=== PATIENT | female | born 1985 | race Caucasian/White ===

== ENCOUNTER 2019-10-08 13:14 | Inpatient (IN) | payer BC ==
[2019-10-08] MEDS ORDERED: Lactated Ringers 1000 ML Bag* 1,000 ML IV ONE (13:19)
[2019-10-08] MEDS ORDERED: Buffered Lidocaine 1% SYRIN* 1 ML/SYRINGE INTRADERM ONE (13:19)
[2019-10-08] MEDS ORDERED: Promethazine INJ(RESTRICTED)* 25 MG/ML 1 ML VIAL IV ONE (13:31)
[2019-10-08] MEDS ORDERED: Dinoprostone* 10 MG VAG.SUPP VAGINAL ONE (13:31)
[2019-10-08] MEDS ORDERED: Nalbuphine* 10 MG/ML 1 ML VIAL IV ONE (13:31)
[2019-10-08] MEDS ORDERED: Lactated Ringers 1000 ML Bag* 1,000 ML IV SCH (14:00)
--- NOTE | 2019-10-08 14:26 | HP ---
General Information - Reason for Visit IOL secondary to CHTN at term - General Information Maternal Age: 34 Grav: 1 Estimated Due Date: 10/09/19 Determined By: LMP Gestational Age in Weeks/Days: 39w6d Maternal Blood Type and Rh: AB Positive - Results this Serology/RPR Result: Non-Reactive Rubella Result: Immune HBsAg Result: Negative HIV Result: Negative GBS Culture Result: Negative Past Medical History Pertinent Past Medical History: See Records - Chronic Hypertension Pertinent Past Surgical History: See Records Past Surgical History Comment: S/P Appendectomy S/P Left Ovarian Cystectomy, partial oophorectomy in 2004 Pertinent Family History: Non-Contributory - Antepartal Records Antepartal Records: Reviewed, Complicated by: - Chronic Hypertension Review of Systems Constitutional: Comfortable CV Complaint: No Respiratory: Shortness of Breath: No Gastrointestinal: No Nausea/Vomiting, Normal Bowel Movement Genitourinary: No Dysuria, No Bleeding, No Leaking Fluid Musculoskeletal: No Complaint, No Epigastric Pain Neurological: No Headache, No Visual Changes Movement: Normal Exam Allergies/Adverse Reactions: Allergies MS Penicillins [PCN] Allergy (Verified 07/24/14 17:12) Hives BP 132/92 Pulse 111 RR20 T 98.8 O2% 100 - Exam Breast: Breast Exam Deferred CVA: No CVA Tenderness Extremities: No Edema Heart: Normal Rhythm/Heart Sounds HEENT: No Significant Findings Lungs: Clear Bilaterally Rectal: Rectal Exam Deferred Reflexes: DTR 2+ Thyroid: No Thyromegaly - Abdominal Exam Abdomen Exam: Non-Tender, Fundal Height Consistent with Dates - Ultrasound/Biophysical Profile Ultrasound Status: Bedside Exam - Vertex Targeted Exam Findings Cervical Exam: 1cm Effacement: 60% Station: -3 Presenting Part: Vertex Membrane Status: Intact Bleeding/Discharge: None EFM Findings - External Monitor Findings Baseline Heart Rate: 130 External Monitor Findings: Accelerations Present, No Pattern of Variable or Late Decelerations, Variability Moderate, Baseline Stable Contractions: Irregular, Mild Assessment/Plan - Obstetrical Risk Factors Obstetrical Risk Factors: Chronic Hypertension - treated with Labetalol 200mg BID Risk Factors Comment: 34 y/o G1 at 39w6d with SIUP here for IOL secondary to CHTN, well controlled on Labetalol Vertex RH+/Rubella Immune GBS Negative - Plan Plan: Induction Plan Comment: Cervidil - Date/Time of Admission Date of Admission: 10/08/19 Time of Admission: 14:00
[2019-10-08 15:24] LABS: Urine Benzodiazepine Screen None Detected (None Detect); Urine Opiates Screen None Detected (None Detect)
[2019-10-08] MEDS: Labetalol TAB* 200 MG PO SCH (20:42)
--- NOTE | 2019-10-09 02:37 | PN ---
Progress Note - Progress Note Date of Service: 10/09/19 Note: 34 y/o G1 at 40w0d IOL 2/2 CHTN Cervidil removed after 12 hours Cervix soft, 2cm, 60-70%, -3 Pt reports contractions increasing in intensity over the past 1-2 hours FHT is Category I, 130bpm, moderate, +accels, no decels Contractions Q 2-3 minutes, palpate firm Offered transcervical cooks balloon, pt prefers expectant management at this time, will re-examine as clinically indicated Jeremías Barbour, OBTWYLAN
[2019-10-09] MEDS ORDERED: Influenza VAC *QUAD* 2019-20* 0.5 ML SYRINGE IM ONE (09:00)
[2019-10-09] MEDS ORDERED: Pneumococcal *Vac Polyvalent 0.5 ML VIAL IM ONE (09:00)
[2019-10-09] MEDS: Labetalol TAB* 200 MG PO SCH ×2 (09:34→20:38)
[2019-10-09] MEDS: Calcium Carbonate CHEW TAB* 500 MG (TUMS) PO PRN ×2 (09:34→16:32)
--- NOTE | 2019-10-09 10:52 | PN ---
Progress Note - Progress Note Date of Service: 10/09/19 Note: Pt SROM'd at 0715am, clear fluid Jared regularly and uncomfortably. FHT intermittent, exhibits baseline 140bpm, moderate variability, + accels, no decels Contractions q 2-3 minutes Pt afebrile BP's mild range, no severe range BP's, pt asymptomatic Continue expectant management, examine as clinically indicated, will augment with pitocin if indicated DO CHRISTINE White
--- NOTE | 2019-10-09 13:23 | PN ---
Progress Note - Progress Note Date of Service: 10/09/19 Note: G1 at 40w0d here for IOL 2/2 CHTN IOL course: Cervidil placed at 1400 on 10/08; 1cm/60/-3 --> out 12 hours later, didier regularly; 2cm/70/-3 --> SROM at 0715 on 10/09; didier uncomfortably, exam deferred --> 1300 hours exam 5cm/90/-2, didier regularly without augmentation. FHT: Category I. 130bpm/Moderate variability/+accels/intermittent early decels, negative variable or late decels Contractions q 3-5 minutes BP's are stable in mild range, no severe range bp's, pt is asymptomatic Pt afebrile, RRR, no s/sx of infection RH+ GBS negative Continue expectant management Anticipate vaginal delivery DO CHRISTINE White
[2019-10-09 15:13] LABS: ABS Lymphocytes 0.5 10^3/ul (1.0-4.8); ABS Monocytes 0.7 10^3/ul (0-0.8); ABS Neutrophils 13.3 10^3/ul (1.5-7.7); Eosinophil % 0.1 %; Hematocrit 38 % (35-47); Hemoglobin 13.1 g/dL (12.0-16.0); Lymphocyte % 3.5 %; Mean Corpuscular HGB Conc 35 g/dL (31-36); Mean Corpuscular Hemoglobin 31 pg (27-31); Mean Corpuscular Volume 89 fL (80-97); Mean Platelet Volume 7.4 fL (7.4-10.4); Platelet Count 327 10^3/uL (150-450); Red Blood Count 4.19 10^6 /uL (3.70-4.87); Red Cell Distribution Width 13 % (10-15); White Blood Count 14.5 10^3/uL (3.5-10.8)
--- NOTE | 2019-10-09 17:52 | PN ---
Progress Note - Progress Note Date of Service: 10/09/19 Note: Pt re-examined. Cervix 7cm/90/-2. FHT 130bpm/moderate/+accels/no decels - category I. Jared regularly without augmentation. Shoe Repair Supervisor and nursing at bedside supporting pt with maternal repositioning to help with descent.
[2019-10-09] MEDS ORDERED: Oxytocin in LR* 20 UNITS/1,000 ML BAG IVPB SCH (19:00)
--- NOTE | 2019-10-09 20:32 | PN ---
Progress Note - Progress Note Date of Service: 10/09/19 Note: Pt re-examined. Now 9cm/100/0 station FHT is 135/moderate/+accels/early decels - OK for continued intermittent monitoring per protocol Jared q 2-5 minutes Continues to make cervical change without augmentation BP's remain stable in mild range, no severe range BP's, pt asymptomatic Continue expectant management Anticipate vaginal delivery Jeremías Barbour, OBTWYLAN
--- NOTE | 2019-10-09 22:17 | PN ---
Progress Note - Progress Note Date of Service: 10/09/19 Note: Cervix re-examined and is a rim now. Head is at +1. Attempted to reduce cervix with pushing x 1 as pt felt strong desire to push, unable to reduce. Pt on remote monitoring and continuing to labor in water now. FHT is Category I, 130bpm/moderate/+accels/no decels Jared q 2-5 minutes BP's remain stable in mild range; single 161 systolic in the setting of painful contraction, evening Labetalol administered, pt asymptomatic Continue to expectantly manage, continuing to make change without augmentation Anticipate vaginal delivery Jeremías Km, OBALEX
[2019-10-10] MEDS ORDERED: Glycerin ADULT SUPP PR PRN (01:55)
[2019-10-10] MEDS ORDERED: Witch Hazel PAD* JAR TOPICAL PRN (01:55)
[2019-10-10] MEDS ORDERED: Acetaminophen TAB* 325 MG PO PRN (01:55)
[2019-10-10] MEDS ORDERED: Dibucaine 1% 28.35 GM TUBE PR PRN (01:55)
--- NOTE | 2019-10-10 01:55 | PROCNOTE ---
[facility] OB: Delivery Note - Delivery A Date of : 10/10/19 Time of : 00:49 [place] Sex: Male Score 1 Minute: 7 Score 5 Minutes: 9 Gestational Age in Weeks and Days at Delivery: 40 Weeks and 1 Days Delivery Method: Spontaneous Vaginal Labor: Induced Did Patient attempt ?: N/A, No Previous Amniotic Fluid: Clear Estimated Blood Loss: 150 Anesthesia/Analgesia: None Delivered By: Diego Barbour JR - Nursery Level of Nursery: Regular/Bedside - Perineum Perineal Injury: Periurethral Laceration, Perineal Laceration, 2nd Degree Perineal Injury Comment: repaired in usual fashion with vicryl rapide Perineal Repair: By Delivering Practioner - Events Delivery Events of Note: None Apply Delivery Events of Note Comment: Induced with cervidil, no additional augmentation - Additional Delivery Notes Additional Delivery Notes: 34 y/o G1 IOL at term 2/2 CHTN Cervidil placed, progressed into spontaneous labor Delivered vaginally in [facility]LEX orientation No anesthesia other than local for repair Small 2nd degree and left periurethral repaired with vicryl rapide Infant and mother doing well at the time of this note
[2019-10-10] MEDS ORDERED: Lactated Ringers 1000 ML Bag* 1,000 ML IV SCH (02:00)
[2019-10-10] MEDS ORDERED: Lidocaine 1% INJ* 10 MG/ML 30 ML SDV ONE (04:00)
[2019-10-10] MEDS: Ibuprofen TAB* 600 MG PO PRN ×3 (07:32→21:15)
[2019-10-10] MEDS: Docusate CAP* 100 MG PO SCH ×3 (07:32→21:16)
[2019-10-10] MEDS: Labetalol TAB* 200 MG PO SCH ×2 (07:40→21:16)
[2019-10-10] MEDS ORDERED: Simethicone TAB* 80 MG TAB.CHEW PO SCH (08:30)
[2019-10-11 08:07] LABS: ABS Eosinophils 0.1 10^3/ul (0-0.6); ABS Monocytes 0.9 10^3/ul (0-0.8); Eosinophil % 0.5 %; Hematocrit 32 % (35-47); Hemoglobin 11.1 g/dL (12.0-16.0); Lymphocyte % 15.1 %; Mean Corpuscular HGB Conc 35 g/dL (31-36); Mean Corpuscular Hemoglobin 31 pg (27-31); Mean Corpuscular Volume 91 fL (80-97); Mean Platelet Volume 7.1 fL (7.4-10.4); Platelet Count 331 10^3/uL (150-450); Red Blood Count 3.53 10^6 /uL (3.70-4.87); Red Cell Distribution Width 14 % (10-15); White Blood Count 12.9 10^3/uL (3.5-10.8)
[2019-10-11] MEDS: Labetalol TAB* 200 MG PO SCH ×2 (08:40→21:04)
[2019-10-11] MEDS: Docusate CAP* 100 MG PO SCH ×3 (08:40→21:04)
[2019-10-11] MEDS: Ibuprofen TAB* 600 MG PO PRN ×3 (08:40→21:04)
[2019-10-11] MEDS ORDERED: Ferrous Gluconate TAB* 324 MG TAB PO SCH (09:00)
--- NOTE | 2019-10-11 19:26 | PTEDU ---
Patient Name: GWEN CARDENAS GWEN CARDENAS selected video: Never Ever Shake a Baby to view on 10/11/2019 at 7:25:08 PM [id number]
--- NOTE | 2019-10-11 19:35 | PTEDU ---
Patient Name: GWEN CARDENAS GWEN CARDENAS selected video: BBOB: Nurturing Your Gorgeous &Growing Baby by to view on 10/11/2019 at 7:35:20 PM [id number]
--- NOTE | 2019-10-11 20:06 | PTEDU ---
Patient Name: GWEN CARDENAS GWEN CARDENAS selected video: Follow Me Mum: The Rg to Successful to view on 9 at 8:06:07 [id number]
[2019-10-12] MEDS: Ibuprofen TAB* 600 MG PO PRN ×2 (06:09→11:48)
[2019-10-12] MEDS: Labetalol TAB* 200 MG PO SCH (08:30)
[2019-10-12] MEDS: Docusate CAP* 100 MG PO SCH (08:30)
[2019-10-12] MEDS ORDERED: Influenza VAC *QUAD* 2019-20* 0.5 ML SYRINGE IM ONE (09:00)
[2019-10-12 12:11] VITALS: BP 129/72
== END 2019-10-12 13:28 | disposition home or self-care (01) | DRG 560 ==
LOC: MCHOBOUT 13:14 → MCHOB 14:05
PROVIDERS: ADMIT Obstetrics & Gynecology; ATTEND Obstetrics & Gynecology
PROC: 10E0XZZ Delivery of Products of Conception, External Approach (ICD-10-PCS; principal; 2019-10-10)
PROC: 3E033VJ Introduction of Other Hormone into Peripheral Vein, Percutaneous Approach (ICD-10-PCS; 2019-10-10)
PROC: 0KQM0ZZ Repair Perineum Muscle, Open Approach (ICD-10-PCS; 2019-10-10)
PROC: 0UQMXZZ Repair Vulva, External Approach (ICD-10-PCS; 2019-10-10)
DX: O10.92 Unspecified pre-existing hypertension complicating childbirth (principal); Z37.0 Single live birth; O48.0 Post-term pregnancy; O71.82 Other specified trauma to perineum and vulva; O70.1 Second degree perineal laceration during delivery; Z3A.40 40 weeks gestation of pregnancy
CPT/HCPCS: 36415; 80307; 85025; 86850; 86900; 86901; 90686; A9270-GY